=== PATIENT | female | born 1950 ===

== ENCOUNTER 2017-03-26 06:18 | Day surgery (SDC) | payer MEDICARE ==
[2017-03-26 07:22] VITALS: BMI 34.0
[2017-03-26] MEDS ORDERED: Propofol 10 mg/ml Inj (20 ML) ONE (09:00)
[2017-03-26] MEDS ORDERED: Lidocaine Hydrochloride 5 ML INJ ONE (09:00)
[2017-03-26] MEDS ORDERED: ePHEDrine 50 mg/ml Inj ONE (09:12)
[2017-03-26 09:47] VITALS: TEMP 97.8
[2017-03-26 10:45] VITALS: BP 120/67; PULSE 67; RESP 17; O2SAT 99
== END 2017-03-26 10:43 | disposition home or self-care (01) ==
LOC: C.ENDO 06:18
PROVIDERS: ATTEND Internal Medicine Gastroenterology
DX: Z12.11 Encounter for screening for malignant neoplasm of colon (principal); D12.3 Benign neoplasm of transverse colon; K64.1 Second degree hemorrhoids
CPT/HCPCS: 45385; 82948; J2704

== ENCOUNTER 2018-01-15 06:46 | Day surgery (SDC) | payer MEDICARE, OTHER ==
[2018-01-15 07:16] VITALS: BMI 35.5
[2018-01-15] MEDS ORDERED: Lactated Ringer's 1,000 ML IV ONE (08:46)
[2018-01-15] MEDS ORDERED: Propofol 10 mg/ml Inj (20 ML) ONE (08:49)
[2018-01-15 08:52] VITALS: O2SAT 100
[2018-01-15] MEDS ORDERED: Lactated Ringer's 500 ML IV SCH (09:00)
[2018-01-15 10:58] VITALS: TEMP 97
[2018-01-15 10:59] VITALS: RESP 15
[2018-01-15 11:03] VITALS: BP 116/52; PULSE 68
== END 2018-01-15 10:20 | disposition home or self-care (01) ==
LOC: C.ENDO 06:46
PROVIDERS: ATTEND Internal Medicine Gastroenterology
DX: R10.13 Epigastric pain (principal); K44.9 Diaphragmatic hernia without obstruction or gangrene; K21.0 Gastro-esophageal reflux disease with esophagitis; K31.7 Polyp of stomach and duodenum; I10 Essential (primary) hypertension; E11.9 Type 2 diabetes mellitus without complications; Z85.3 Personal history of malignant neoplasm of breast; Z79.4 Long term (current) use of insulin; Z79.82 Long term (current) use of aspirin; Z79.899 Other long term (current) drug therapy
CPT/HCPCS: 43239; 43251; 82948; 88305; 88312; 88313; 88342; J2704; J7120